=== PATIENT | female | born 1930 | race Caucasian/White ===

== ENCOUNTER 2018-02-03 19:52 | Emergency (ER) | payer MEDICARE ==
[2018-02-03 20:01] VITALS: BP 147/71; PULSE 80; RESP 18; TEMP 98.2
--- NOTE | 2018-02-03 20:12 | ED ---
Fall HPI - General Chief Complaint: Fall Stated Complaint: Fall Time Seen by Provider: 02/03/18 20:02 Source: patient Mode of arrival: ambulatory - History of Present Illness Initial Comments: Patient is an 87-year-old female who presents with a chief complaint of a fall. The patient states that she had a mechanical fall at home she tripped over a rug. Patient states that she hit her knees and her head on the floor. She denies any use of blood thinners, she denies loss of consciousness. Patient was able to get up and ambulate after the fall. She is here with her sister. Patient states that she feels normal. She has some pain over the bridge of the nose, she has bruises on the knees however she states she does not have any pain with knee movement or weight bearing. Patient has no other complaints at this time. MD Complaint: fall - Related Data Previous Rx's Medication Instructions Recorded Ibuprofen [Motrin] 800 mg PO TID PRN 7 Days #21 tab 02/03/18 Allergies Allergy/AdvReac Type Severity Reaction Status Date / Time No Known Allergies Allergy Verified 02/03/18 20:01 Review of Systems ROS Statement: Those systems with pertinent positive or pertinent negative responses have been documented in the HPI. ROS Other: All systems not noted in ROS Statement are negative. Past Medical History Past Medical History: Diabetes Mellitus, Hypertension History of Any Multi-Drug Resistant Organisms: None Reported Past Surgical History: No Surgical Hx Reported Past Psychological History: No Psychological Hx Reported Smoking Status: Never smoker Past Alcohol Use History: None Reported Past Drug Use History: None Reported General Exam Limitations: no limitations General appearance: alert, in no apparent distress Head exam: Present: normocephalic, other Eye exam: Present: normal appearance (Patient has a small abrasion to the left side of the bridge of her nose.), PERRL, EOMI ENT exam: Present: normal exam, mucous membranes moist, other (Teeth are aligned , no dental fractures identified) Neck exam: Present: normal inspection. Absent: tenderness Respiratory exam: Present: normal lung sounds bilaterally. Absent: respiratory distress, wheezes Cardiovascular Exam: Present: regular rate, normal rhythm GI/Abdominal exam: Present: soft. Absent: distended, tenderness Rectal exam: Present: deferred Extremities exam: Present: normal inspection, full ROM, other (Patient has bruises and small abrasions on bilateral knees. She has no issues bearing weight, she has full range of motion both active and passive with the knee.). Absent: tenderness Back exam: Present: normal inspection Neurological exam: Present: alert, oriented X3 Psychiatric exam: Present: normal affect, normal mood Skin exam: Present: warm, dry, intact Course Vital Signs 02/03/18 19:57 Temperature 98.2 F Pulse Rate 80 Respiratory 18 Rate Blood Pressure 147/71 O2 Sat by Pulse 96 Oximetry Medical Decision Making - Medical Decision Making Patient presents with chief complaint of a mechanical fall. On initial evaluation, vitals are stable, patient in no acute distress. She is able to really well without assistance. Neurologic exam is unremarkable. Patient will be evaluated with CT of the head, and CT of the face. 8:[address] evaluation of the head and facial bones shows no acute fracture or abnormality. Reevaluation, the patient is still pain-free with a nonfocal neuro exam. At this time, she is stable for discharge. Patient was instructed to follow up with primary care in 1-2 days, return to the emergency department if symptoms worsen or change. Disposition Clinical Impression: Fall Disposition: HOME SELF-CARE Condition: Good Instructions: Fall Prevention for Older Adults (ED) Is patient prescribed a controlled substance at d/c from ED?: No Referrals: Sean Baltazar Jr, [Primary Care Provider] - 1-2 days
--- NOTE | 2018-02-03 20:43 | CT ---
EXAMINATION TYPE: CT brain wo con DATE OF EXAM: 02/03/2018 COMPARISON: NONE HISTORY: Trip and fall today. No LOC. Injury to nose. CT DLP: 978.2 mGycm Automated exposure control for dose reduction was used. FINDINGS: The ventricles and sulci appear normal for age. There is no mass effect nor midline shift. There is n o sign of intracranial hemorrhage. Calvarium is intact. There is mild mucosal thickening in the poste rior right maxillary sinus. IMPRESSION: NEGATIVE CT SCAN OF THE BRAIN.
--- NOTE | 2018-02-03 20:46 | CT ---
EXAMINATION TYPE: CT facial bones wo con DATE OF EXAM: 02/03/2018 COMPARISON: NONE HISTORY: Trip and fall today. No LOC. Injury to nose. CT DLP: 562.7 mGycm Automated exposure control for dose reduction was used. TECHNIQUE: CT scan of the sinuses is performed without contrast, axial images are obtained, coronal r eformatted images are also reviewed. FINDINGS: There is bilateral patency of the ostia metal complex. There is some mucosal thickening in the posterior right maxillary sinus. There is no evidence of a blowout fracture. The orbital margins are intact. The globes are symmetric. Nasal bone appears intact. Zygomatic arches appear normal. The margins of the maxilla appear intact. The mandibular ring is intact. I see no bony destructive proces s. IMPRESSION: There is mucosal thickening posteriorly in the right maxillary sinus consistent with infl ammatory disease. No fracture seen. No nasal bone fracture seen.
== END 2018-02-03 20:57 | disposition home or self-care (01) ==
LOC: EC 19:52
DX: S80.02XA Contusion of left knee, initial encounter (principal); S80.01XA Contusion of right knee, initial encounter; S00.31XA Abrasion of nose, initial encounter; W18.09XA Striking against other object with subsequent fall, initial encounter; Y92.009 Unspecified place in unspecified non-institutional (private) residence as the place of occurrence of the external cause
CPT/HCPCS: 70450; 70486; 99283